=== PATIENT | female | born 1995 | race Caucasian/White ===

== ENCOUNTER 2024-11-02 16:21 | Emergency (ER) | payer MEDICAID, OTHER ==
[2024-11-02 21:20] VITALS: TEMP 98.4
[2024-11-02] MEDS: ACETAMINOPHEN 325MG TABLET PO ONE (21:20)
[2024-11-02 23:29] LABS: HEMATOCRIT 36.6 % (36.0-48.0); HEMOGLOBIN 12.6 g/dL (12.0-16.0); MEAN CORPUSCULAR HEMOGLOBIN 32.8 pg (28.0-32.0); MEAN CORPUSCULAR HGB CONC 34.3 g/dL (31.0-37.0); MEAN CORPUSCULAR VOLUME 95.7 fL (81.0-99.0); PLATELET 274 x1000/uL (130-400); RED BLOOD CELL COUNT 3.82 mill/uL (4.2-5.4); RED CELL DISTRIBUTION WIDTH 13.3 % (11.6-14.6); WHITE BLOOD COUNT 5.9 x1000/uL (4.5-11.0)
[2024-11-02 23:37] LABS: CARBON DIOXIDE 29 mEq/L (21-32); CHLORIDE 106 mEq/L (98-107); POTASSIUM 4.1 mEq/L (3.5-5.1); SODIUM 140 mEq/L (136-145)
[2024-11-02 23:38] LABS: CALCIUM 9.1 mg/dL (8.7-10.4)
[2024-11-02 23:43] LABS: CREATININE 0.8 mg/dL (0.6-1.0); GLUCOSE 108 mg/dL (70-105); UREA NITROGEN BLOOD 5 mg/dL (9-23)
[2024-11-02 23:44] LABS: ALANINE AMINOTRANSFERASE 13 IU/L (10-49); ALBUMIN 3.9 g/dL (3.2-4.8); ASPARTATE AMINOTRANSFERASE 25 IU/L (<34)
[2024-11-02 23:45] LABS: BILIRUBIN TOTAL 0.3 mg/dL (0.1-1.0); PROTEIN TOTAL 6.8 g/dL (6.0-8.3)
[2024-11-03 02:46] LABS: HCG SCREEN NEGATIVE
[2024-11-03] MEDS ORDERED: IOHEXOL-300 100 ML BOTTLE ONE (04:07)
[2024-11-03] MEDS ORDERED: IOHEXOL-350 100 ML BOTTLE ONE (04:07)
[2024-11-03] MEDS ORDERED: ACET-2708 MT (04:19)
== END 2024-11-03 04:33 | disposition home or self-care (01) ==
LOC: ER 16:21
DX: R51.9 Headache, unspecified (principal); S00.83XA Contusion of other part of head, initial encounter; Y04.0XXA Assault by unarmed brawl or fight, initial encounter; Y93.89 Activity, other specified; Y92.89 Other specified places as the place of occurrence of the external cause; Y99.8 Other external cause status
CPT/HCPCS: 99285; 70450; 80053; 81025; 84703; 85027; 36415; 70486; 70496; 70498; 71260; 74177; Q9967 ×2

== ENCOUNTER 2025-09-14 13:43 | Emergency (ER) | payer MEDICAID ==
[~2025-09-14] VITALS: Ht 160 cm; Wt 63.0 kg
[~2025-09-14 13:43] MED LIST: ACET-2708 MT
[2025-09-14 13:48] VITALS: TEMP 37.2; O2SAT 98
[2025-09-14 13:50] VITALS: O2SAT 99
[2025-09-14 15:39] LABS: BASOPHILS % 0.7 % (0.0-2.0); EOSINOPHILS % 2.9 % (0.0-5.0); HEMATOCRIT. 37.7 % (36.0-48.0); HEMOGLOBIN. 12.6 g/dL (12.0-16.0); LYMPHOCYTES % 29.3 % (20.0-50.0); MEAN PLATELET VOLUME 9.2 fl (7.4-10.4); MONOCYTES % 8.8 % (2.0-8.0); NEUTROPHILS % 58.3 % (40.0-76.0); PLATELET 457 x1000/uL (130-400); RED BLOOD CELL COUNT 3.94 mill/uL (4.2-5.4); RED CELL DISTRIBUTION WIDTH 13.6 % (11.6-14.6)
[2025-09-14 15:52] LABS: CREATININE 0.9 mg/dL (0.6-1.0); UREA NITROGEN BLOOD 6 mg/dL (9-23)
[2025-09-14 17:46] VITALS: BP 112/72; PULSE 102; RESP 14
[2025-09-14] MEDS: HYDROCODONE/ACETAMINOPHEN 5/325MG TABLET PO ONE (17:46)
== END 2025-09-14 17:02 | disposition left against medical advice (07) ==
LOC: ER 13:43
DX: R51.9 Headache, unspecified (principal); M54.2 Cervicalgia
CPT/HCPCS: 36415; 80048; 85025; 99281